=== PATIENT | female | born 1995 | race African-American/Black ===

== ENCOUNTER 2017-12-09 16:22 | Outpatient (CLI) | payer OTHER ==
[2017-12-10 19:19] LABS: Hep B Surf AB REACTIVE (NonReactive)
[2017-12-12 11:22] LABS: Measles (Rubeola) IgG AB Greater than 300.0 AU/mL (Immune >29.9); Mumps IgG ABS 31.7 AU/mL (Immune >10.9); Rubella Virus IgG 2.99 index (Immune >0.99)
== END 2017-12-09 16:23 | disposition home or self-care (01) ==
LOC: MADLABBHPM 16:22
DX: Z00.00 Encounter for general adult medical examination without abnormal findings (principal)
CPT/HCPCS: 36415; 86706; 86735; 86762; 86765; 86787

== ENCOUNTER 2018-03-12 05:43 | Emergency (ER) | payer BC ==
[2018-03-12 06:06] LABS: Bilirubin Negative (Negative); Blood, Urine Negative (Negative); Clarity Clear (Clear); Glucose, Urine (Dipstick) Negative (Negative); Leukocyte Negative (Negative); Nitrite Negative (Negative); Protein, Urine (Dipstick) Negative (Neg-Trace); Urobilinogen 0.2 mg/dL (0.2-1.0)
[2018-03-12 07:05] LABS: #Lymphocytes 1.5 thou/uL (1.20-3.40); #Monocytes 0.4 thou/uL (0.11-0.59); #Neutrophils 4.2 thou/uL (1.40-6.50); %Basophils 0.5 % (0.0-1.0); %Lymphocytes 24.1 % (21.0-51.0); %Monocytes 6.5 % (0.0-10.0); Hemoglobin 13.9 g/dL (12.0-16.0); Mean Corpuscular HGB CONC 33.2 g/dL (32.0-36.0); Mean Corpuscular Hemoglobin 30.9 pg (27.0-31.0); Mean Corpuscular Volume 93.1 fL (78.0-98.0); Mean Platelet Volume 9.7 fL (7.4-10.4); Platelet Count 213 thou/uL (130-400); RBC Distribution Width 11.4 % (11.5-14.5); Red Blood Cell (RBC) Count 4.49 mill/uL (4.20-5.40); White Blood Cell (WBC) Count 6.1 thou/uL (4.8-10.8)
[2018-03-12 07:08] LABS: Pregnancy Test - Urine (BHCG) Negative (Negative); Pregu Control Background? CLEAR/WHITE (CLR/WHITE); Pregu Control Bar Appear? YES (CONTROL BAR)
[2018-03-12 07:19] LABS: Anion Gap 12 mmol/L (10-20); BUN (Urea Nitrogen) 7 mg/dL (7.0-18.7); Calc. Creatinine Clearance 0 mL/min (70-130); Calcium 9.9 mg/dL (7.8-10.44); Carbon Dioxide 25 mmol/L (22-29); Chloride 108 mmol/L (98-107); Estimated GFR-MDRD Greater than 90; Glucose 93 mg/dL (70-105); Potassium 4.1 mmol/L (3.5-5.1); Sodium 141 mmol/L (136-145)
[2018-03-12] MEDS ORDERED: Lorazepam 1 MG TAB ONE (07:50)
[2018-03-12] MEDS ORDERED: Lactated Ringer's 0 ML ONE (07:50)
--- NOTE | 2018-03-12 08:42 | RAD ---
CHEST 2 VIEWS: Date: 03/12/18 HISTORY: Dyspnea. FINDINGS: Cardiac silhouette and pulmonary vasculature are unremarkable. Mediastinum is midline. No confluent a ir space consolidation, pneumothorax, or pleural fluid. IMPRESSION: No active cardiopulmonary abnormalities are demonstrated. POS: [facility]
== END 2018-03-12 07:55 | disposition home or self-care (01) ==
LOC: MADERS 05:43
DX: F41.9 Anxiety disorder, unspecified (principal); F17.210 Nicotine dependence, cigarettes, uncomplicated
CPT/HCPCS: 71046; 80048; 81003; 81025; 85025; 85379; 87086; 93005; J7120

== ENCOUNTER 2018-05-15 07:03 | Emergency (ER) | payer SELFPAY ==
[2018-05-15 07:27] LABS: Bilirubin Negative (Negative); Blood, Urine Moderate (Negative); Glucose, Urine (Dipstick) Negative (Negative); Leukocyte Large (Negative); Nitrite Negative (Negative); Protein, Urine (Dipstick) 100 mg/dL (Neg-Trace); Urobilinogen 0.2 mg/dL (0.2-1.0); pH, Urine 7.5 (5.0-9.0)
[2018-05-15 07:28] LABS: Clarity Hazy (Clear)
[2018-05-15 07:33] LABS: Bacteria/HPF 2+ HPF (None Seen); Squamous Epithelial 0-3 HPF (0-3)
[2018-05-15] MEDS ORDERED: Morphine 4 MG/ML VIAL ONE (07:42)
[2018-05-15] MEDS ORDERED: cefTRIAXone\\ROCEPHIN 1 GM VIAL ONE (07:43)
[2018-05-15] MEDS ORDERED: Lidocaine 1% 20 ML MDV ONE (07:43)
[2018-05-15] MEDS ORDERED: Tamsulosin HCl 0.4 MG CAP ONE (07:43)
[2018-05-15 07:57] LABS: #Lymphocytes 1.6 thou/uL (1.20-3.40); #Monocytes 0.6 thou/uL (0.11-0.59); #Neutrophils 5.6 thou/uL (1.40-6.50); %Basophils 0.4 % (0.0-1.0); %Monocytes 8.2 % (0.0-10.0); %Neutrophils 71.4 % (42.0-75.0); Hemoglobin 13.5 g/dL (12.0-16.0); Mean Corpuscular HGB CONC 32.8 g/dL (32.0-36.0); Mean Corpuscular Hemoglobin 30.6 pg (27.0-31.0); Mean Corpuscular Volume 93.3 fL (78.0-98.0); Mean Platelet Volume 9.1 fL (7.4-10.4); Platelet Count 210 thou/uL (130-400); RBC Distribution Width 11.6 % (11.5-14.5); Red Blood Cell (RBC) Count 4.39 mill/uL (4.20-5.40); White Blood Cell (WBC) Count 7.8 thou/uL (4.8-10.8)
[2018-05-15 08:09] LABS: Anion Gap 13 mmol/L (10-20); BUN (Urea Nitrogen) 13 mg/dL (7.0-18.7); Calc. Creatinine Clearance 0 mL/min (70-130); Calcium 9.5 mg/dL (7.8-10.44); Carbon Dioxide 26 mmol/L (22-29); Chloride 105 mmol/L (98-107); Estimated GFR-MDRD Greater than 90; Glucose 86 mg/dL (70-105); Potassium 3.8 mmol/L (3.5-5.1); Sodium 140 mmol/L (136-145)
[2018-05-15 09:01] LABS: BHCG - Serum Negative (NEGATIVE); Pregs Control Background? CLEAR/WHITE (CLR/WHITE); Pregs Control Bar Appear? YES (CONTROL BAR)
== END 2018-05-15 09:18 | disposition home or self-care (01) ==
LOC: MADERS 07:03
DX: N12 Tubulo-interstitial nephritis, not specified as acute or chronic (principal); F41.9 Anxiety disorder, unspecified; Z87.891 Personal history of nicotine dependence
CPT/HCPCS: 80048; 81003; 81015; 84703; 85025; 87086; 96372; J0696; J2001; J2270

== ENCOUNTER 2018-11-09 17:12 | Emergency (ER) | payer SELFPAY | END 2018-11-09 18:10 | disposition home or self-care (01) | LOC: MADERS 17:12 | DX: R10.9 Unspecified abdominal pain (principal); F41.9 Anxiety disorder, unspecified; Z87.891 Personal history of nicotine dependence | CPT/HCPCS: 99281 ==

== ENCOUNTER 2019-04-15 17:54 | Emergency (ER) | payer SELFPAY ==
[2019-04-15] MEDS ORDERED: Ketorolac Tromethamine 30 MG/ML VIAL ONE (18:34)
--- NOTE | 2019-04-15 18:41 | RAD ---
Right ring finger 3 views HISTORY: Infection. Injury. FINDINGS: Joint spaces are preserved. No acute fracture, dislocation, or aggressive osseous erosions. No soft tissue gas or radiopaque foreign bodies are apparent. IMPRESSION: Normal exam.
[2019-04-15 18:46] LABS: #Basophils 0.1 thou/uL (0.0-0.2); #Lymphocytes 2.7 thou/uL (1.20-3.40); #Monocytes 0.4 thou/uL (0.11-0.59); #Neutrophils 4.5 thou/uL (1.40-6.50); %Basophils 1.1 % (0.0-1.0); %Eosinophils 0.1 % (0.0-10.0); %Lymphocytes 35.3 % (21.0-51.0); %Monocytes 4.9 % (0.0-10.0); %Neutrophils 58.7 % (42.0-75.0); Hemoglobin 13.4 g/dL (12.0-16.0); Mean Corpuscular Hemoglobin 30.4 pg (27.0-31.0); Mean Corpuscular Volume 95.2 fL (78.0-98.0); Mean Platelet Volume 8.7 fL (7.4-10.4); Platelet Count 197 thou/uL (130-400); RBC Distribution Width 11.7 % (11.5-14.5); White Blood Cell (WBC) Count 7.7 thou/uL (4.8-10.8)
[2019-04-15 18:54] LABS: BHCG - Serum Negative (NEGATIVE); Pregs Control Background? CLEAR/WHITE (CLR/WHITE); Pregs Control Bar Appear? YES (CONTROL BAR)
[2019-04-15 19:02] LABS: Anion Gap 12 mmol/L (10-20); BUN (Urea Nitrogen) 8 mg/dL (7.0-18.7); Calc. Creatinine Clearance 0 mL/min (70-130); Calcium 9.1 mg/dL (7.8-10.44); Carbon Dioxide 24 mmol/L (22-29); Chloride 108 mmol/L (98-107); Estimated GFR-MDRD Greater than 90; Glucose 82 mg/dL (70-105); Potassium 4.1 mmol/L (3.5-5.1); Sodium 140 mmol/L (136-145)
[2019-04-15] MEDS ORDERED: cefTRIAXone\\ROCEPHIN 1 GM VIAL ONE (19:03)
[2019-04-15] MEDS ORDERED: Sodium Chloride 0.9% 100 ML ONE (19:04)
== END 2019-04-15 19:30 | disposition home or self-care (01) ==
LOC: MADERS 17:54
DX: S61.204A Unspecified open wound of right ring finger without damage to nail, initial encounter (principal); L08.9 Local infection of the skin and subcutaneous tissue, unspecified; F41.9 Anxiety disorder, unspecified; Z87.891 Personal history of nicotine dependence; Z79.899 Other long term (current) drug therapy; X58.XXXA Exposure to other specified factors, initial encounter
CPT/HCPCS: 80048; 84703; 85025; 86140; 96374; 96375; J0696; J1885; J3490

== ENCOUNTER 2019-10-27 09:42 | Emergency (ER) | payer SELFPAY ==
[2019-10-27] MEDS ORDERED: Ondansetron PF 4 MG/2 ML Vial ONE (10:21)
[2019-10-27] MEDS ORDERED: Sodium Chloride 0.9% 1,000 ML ONE (10:21)
--- NOTE | 2019-10-27 10:31 | RAD ---
PORTABLE CHEST: HISTORY: Dyspnea. COMPARISON: 2014. FINDINGS: Lungs appear well aerated and clear. No infiltrate identified from portable exam. Heart and mediast inum appear normal. IMPRESSION: No acute abnormality identified. POS: [facility]
[2019-10-27 10:36] LABS: BHCG - Serum Negative (NEGATIVE); Pregs Control Background? CLEAR/WHITE (CLR/WHITE); Pregs Control Bar Appear? YES (CONTROL BAR)
== END 2019-10-27 11:05 | disposition home or self-care (01) ==
LOC: MADERS 09:42
DX: R06.4 Hyperventilation (principal); R00.2 Palpitations; R11.2 Nausea with vomiting, unspecified; F41.9 Anxiety disorder, unspecified; Z87.442 Personal history of urinary calculi; Z87.891 Personal history of nicotine dependence
CPT/HCPCS: 36416; 71045; 84703; 93005; 96361; 96374; J2405; J7050